=== PATIENT | male | born 1990 | race Caucasian/White ===

== ENCOUNTER 2017-05-31 14:16 | Emergency (ER) | payer OTHER ==
[~2017-05-31] VITALS: Ht 172.7 cm; Wt 74.8 kg
[~2017-05-31 14:16] MED LIST: Naprosyn500 MG PO
[2017-05-31] MEDS ORDERED: [UNRECOGNIZED DRUG - OTHER] TOP (14:28)
== END 2017-05-31 14:30 | disposition home or self-care (01) ==
LOC: ER 14:16
DX: B86 Scabies (principal); Z87.891 Personal history of nicotine dependence
CPT/HCPCS: 99282

== ENCOUNTER 2021-04-14 19:12 | Emergency (ER) | payer OTHER ==
[~2021-04-14] VITALS: Ht 172.7 cm; Wt 74.8 kg
[~2021-04-14 19:12] MED LIST changes: +[UNRECOGNIZED DRUG - OTHER] TOP
[2021-04-14] MEDS ORDERED: CRUTCH4 XX (22:31)
== END 2021-04-14 22:42 | disposition home or self-care (01) ==
LOC: ER 19:12
DX: S93.401A Sprain of unspecified ligament of right ankle, initial encounter (principal); Z87.891 Personal history of nicotine dependence; X50.9XXA Other and unspecified overexertion or strenuous movements or postures, initial encounter
CPT/HCPCS: 73610; 73630; 99283-25